=== PATIENT | male | born 1940 | race African-American/Black ===

== ENCOUNTER 2018-08-11 07:15 | Day surgery (SDC) | payer MEDICARE ==
[2018-08-11] VITALS (8 sets, daily range): BP systolic 104–155; BP diastolic 60–87
[~2018-08-11 07:15] MED LIST: LIPITOR20 M1 PO; METOPROL TAR25 MG PO
--- NOTE | 2018-08-11 13:00 | NUR ---
PT ARRIVED ON FLOOR VIA STRETCHER ACCOMPANIED BY TWO OR STAFF, PT WAS ABLE TO TRF SELF FROM STRETCHER TO BED WITH EASE; PT ALERT BUT DROWSY; OGDEN PATENT DRAINING TO GRAVITY LITE PINK URINE, NO CLOTS NOTED; #20 LH, LR @100CC/HR, SITE APPEARS HEALTHY; AT BEDSIDE. CALL LIGHT AND SAFETY PRECAUTION REINFORCED, PT VERBALIZED UNDERSTANDING.
--- NOTE | 2018-08-11 14:35 | NUR ---
DR FARMER CALLED SAID TO REMOVE TAPE FROM LEG; SLOW CBI DOWN OVER NIGHT
--- NOTE | 2018-08-11 15:21 | NUR ---
PT APPEARS TO BE SLEEPING BUT EASILY AWOKEN TO STIMULI; RESP EVEN AND UNLABORED; OGDEN REMAINS FREE OF OF CLOTS; RESP EVEN AND UNLABORED;
--- NOTE | 2018-08-11 15:53 | NUR ---
PT AWAKE AND WATCHING TV; PT ASKED FOR SOME CRACKERS, PT TOLERATING WELL AT BEDSIDE WATCHING TV; IVF FINISHED; SITE REMAINS HEALTHY, SL
--- NOTE | 2018-08-11 17:12 | NUR ---
PT EDUCATED USE OF IS 10X EVERY HR WHILE AWAKE, PT DEMONSTRATED PROPER USE AND VERBALIZED UNDERSTANDING. PT TOLERATED CRACKERS, JUICE AND WATER WITHOUT ANY DIFFICULTY. PT STATED HE HAS NO PAIN.
--- NOTE | 2018-08-11 19:29 | NUR ---
BEDSIDE REPORT RECEIVED FROM GIDEON GREENBERG. PT RESTING IN BED SEMI FOWLERS; ALERT AND ORIENTED. CBI IN PROGRESS; CURRENTLY ON BAG #15. DRAINING CLEAR CURRENTLY; CBI SLOWED TO A DRIP. PT IS TOLERATING WELL; NO C/O PAIN OR DISCOMFORT. PENILE SKIN INTEGRITY IS INTACT; MILD EDEMA TO SCROTUM; NO BLEEDING NOTED AT OGDEN INSERTION SITE. RESPIRATIONS EVEN AND UNLABORED ON ROOM AIR. SCD'S ON BLE; IS AT BEDSIDE. PLAN OF CARE REVIEWED. PT ENCOURAGED TO VERBALIZE CONCERNS. STATES UNDERSTANDING. SAFETY MEASURES IN PLACE. CALL LIGHT WITHIN REACH.
--- NOTE | 2018-08-12 | NUR ---
PT ASLEEP AT THIS TIME WITH NO SIGNS OF DISTRESS; AWAKNES TO VERBAL STIMULI. RESPIRATIONS EVEN AND UNLABORED ON ROOM AIR. CBI CONTINUES WITH PINK OUTPUT IN ADEQUATE AMOUNTS. PT DECLINED ANY PAIN, DISCOMFORT, OR SPASMS. NO COMPLAINTS SO FAR THIS SHIFT AND DECLINED ANY PRN MEDICATION. IV SITE APPEARS HEALTHY AND FLUSHES. VS STABLE TEMPERATURE 99.3. REMAINS ON BEDREST. SAFETY MEASURES IN PLACE. CALL LIGHT WITHIN REACH.
[2018-08-12 00:09] VITALS: BP 115/63
--- NOTE | 2018-08-12 04:19 | NUR ---
NO CHANGES IN CONDITION THROUGHOUT THE NIGHT. PT DENIED PAIN THROUGHOUT THE NIGHT. CBI OUTPUT IS CLEAR AND PALE PINK; PT TOLERATING WELL. NO REQUESTS OR CONCERNS AT THIS TIME. CALL LIGHT WITHIN REACH.
[2018-08-12 04:27] VITALS: BP 129/72
[2018-08-12 05:20] LABS: HEMATOCRIT 40.8 % (39.0-50.0); IMMATURE GRANULOCYTES 0.3 % (0.0-5.0); MEAN CELL VOLUME 88.1 fL CALC (80.0-100.0); MEAN CORPUSCULAR HGB 28.1 pG CALC (26.0-32.0); MEAN CORPUSCULAR HGB CONC 31.9 g/L CALC (32.0-36.0); NEUT# 6.28 thou/uL (1.82-7.42); RED BLOOD COUNT 4.63 mill/uL (4.70-6.10); RED CELL DISTRI WIDTH 14.9 % (11.5-15.5)
[2018-08-12 05:38] LABS: BILIRUBIN, TOTAL 0.8 mg/dL (0.0-1.4); CREATININE 1.5 mg/dL (0.7-1.3); MAGNESIUM 1.8 mg/dL (1.6-2.3); POTASSIUM 4.5 mmol/l (3.5-5.1); TOTAL PROTEIN 5.9 g/dL (6.3-8.2)
[2018-08-12 05:45] LABS: ALBUMIN 3.2 g/dL (3.2-5.0)
[2018-08-12] MEDS ORDERED: KEFLEX500 M1 PO (06:01)
[2018-08-12] MEDS ORDERED: GABAPENTIN600 MG PO (06:02)
[2018-08-12] MEDS ORDERED: VESICARE5 MG PO (06:02)
[2018-08-12] MEDS ORDERED: AZO TABS95 MG PO (06:03)
[2018-08-12 08:16] VITALS: BP 120/71
--- NOTE | 2018-08-12 08:16 | NUR ---
PT ASSESSMENT COMPLETE. A/O X3. SPEECH IS CLEAR. RESP EVEN AND UNLABORED. LUNG SOUNDS CLEAR. ABDOMEN DISTENDED,SOFT. BOWEL SOUNDS ACTIVE X4. STRONG RADIAL AND PEDAL PULSES. #20 LH SL. FLUSHED AND PATENT SITE APPEARS HEALTHY. +1 EDEMA NOTED TO SCROTUM. ENCOURAGED ELEVATION AND AMBULATION. OGDEN INTACT, DRAINING DUFFY RED URINE TO GRAVITY. PT DENIES ANY PAIN. SCD IN PLACE. INCENTIVE SPIROMETER AT BEDSIDE. POC DISCUSSED. SAFETY PRECAUTIONS IN PLACE. CALL LIGHT IN REACH. WILL CONTINUE TO MONITOR
[2018-08-12 08:27] VITALS: BP 129/72
--- NOTE | 2018-08-12 09:32 | NUR ---
PT UP WALKING W/ ASSISTANCE OF WRITIER. PT TOLERATED WELL. NO S/S OF DISTRESS. OGDEN DRAINING FREELY. NO CLOTS VISIBLE. WILL CONTINUE TO MONITOR.
--- NOTE | 2018-08-12 13:00 | NUR ---
D/C INSTRUCTIONS AND CATHETER CARE DISCUSSED W/ PT AND . BOTH STATE UNDERSTANDING. IV REMOVED. CATHETER INTACT. VOLUNTEER WAITING TO TRANSPORT PT DOWNSTAIRS VIA WHEELCHAIR
--- NOTE | 2018-08-12 13:20 | NUR ---
Discharge instructions given. Patient verbalizes understanding of same. Discharged in stable condition via Wheelchair to Home with family. All belongings sent with pt.
== END 2018-08-12 13:20 | disposition home health service (06) ==
LOC: ORM 07:15 → MS2 07:15 → ORM 08-12 13:20
PROVIDERS: ATTEND Urology
PROC: XV508A4 Destruction of Prostate using Robotic Waterjet Ablation, Via Natural or Artificial Opening Endoscopic, New Technology Group 4 (ICD-10-PCS; principal; 2018-08-11)
DX: N40.1 Benign prostatic hyperplasia with lower urinary tract symptoms (principal); N13.8 Other obstructive and reflux uropathy; R35.1 Nocturia; R39.12 Poor urinary stream; N21.0 Calculus in bladder; N32.89 Other specified disorders of bladder; R31.0 Gross hematuria; N39.0 Urinary tract infection, site not specified; I10 Essential (primary) hypertension; Z87.891 Personal history of nicotine dependence
CPT/HCPCS: 0421T